=== PATIENT | male | born 1955 | race Caucasian/White ===

== ENCOUNTER 2020-03-18 20:53 | Emergency (ER) | payer MEDICARE ==
--- NOTE | 2020-03-18 21:13 | ED ---
General Adult HPI - General Chief complaint: Recheck/Abnormal Lab/Rx Stated complaint: peg tube issue Time Seen by Provider: 03/18/20 20:56 Source: patient, EMS, RN notes reviewed Mode of arrival: EMS Limitations: language barrier - History of Present Illness Initial comments: Patient is a pleasant 64-year-old male presenting to the emergency Department with complaints of PEG tube falling out. Patient states he was receiving his feedings today when the PEG tube suddenly just fell out. Patient denies any pain. PEG tube has been present for the past 3 months and has been using without difficulty. Patient does have PEG tube secondary to cancer to provide him with extra nutrition. - Related Data Allergies Allergy/AdvReac Type Severity Reaction Status Date / Time chlorhexidine Allergy Rash/Hives Verified 03/18/20 21:01 Penicillins Allergy Rash/Hives Verified 03/18/20 21:01 simvastatin Allergy Unknown Verified 03/18/20 21:01 Review of Systems ROS Statement: Those systems with pertinent positive or pertinent negative responses have been documented in the HPI. ROS Other: All systems not noted in ROS Statement are negative. Constitutional: Denies: fever Eyes: Denies: eye pain ENT: Denies: ear pain Respiratory: Denies: dyspnea Cardiovascular: Denies: chest pain Endocrine: Denies: fatigue Gastrointestinal: Denies: abdominal pain, vomiting Genitourinary: Denies: dysuria Past Medical History Additional Past Medical History / Comment(s): esophageal cancer, radiation/chemo History of Any Multi-Drug Resistant Organisms: None Reported Past Psychological History: Depression Smoking Status: Former smoker Past Alcohol Use History: None Reported Past Drug Use History: None Reported General Exam Limitations: language barrier General appearance: alert, in no apparent distress Head exam: Present: normocephalic Eye exam: Present: normal appearance Neck exam: Present: normal inspection Respiratory exam: Present: normal lung sounds bilaterally Cardiovascular Exam: Present: regular rate, normal rhythm GI/Abdominal exam: Present: soft, normal bowel sounds. Absent: distended, tenderness Extremities exam: Present: normal inspection Neurological exam: Present: alert Psychiatric exam: Present: normal affect, normal mood Skin exam: Present: normal color Course Vital Signs 03/18/20 20:55 Pulse Rate 88 Respiratory 24 Rate Blood Pressure 118/69 O2 Sat by Pulse 99 Oximetry Procedures - Feeding Tube Replacement Reason for Replacement: fell out Initial Tube Inserted: greater than 2 weeks (3 months) Type of Tube: gastrostomy Use of Tube: feedings only Insertion Site Prior to Procedure: clean [place] Tube Size (F): 14 Verification of Placement: auscultation Tube Secured by: G-tube attachment device Patient Tolerated Procedure: well, no complications Additional Comments: Able to flush PEG tube without any complications or discomfort as well as withdrawal Disposition Clinical Impression: PEG tube malfunction Disposition: HOME SELF-CARE Condition: Stable Instructions (If sedation given, give patient instructions): Tube Feeding (DC), How to Use and Care for Your PEG Tube (ED) Additional Instructions: Please follow-up with primary care physician in the next day or 2 for recheck. Return for abdominal pain, to falling out, worsening symptoms or other concerns. Is patient prescribed a controlled substance at d/c from ED?: No Referrals: Benny Rosas MD [REFERRING] - 1-2 days Time of Disposition: 22:53
[2020-03-18 23:02] VITALS: BP 105/60; PULSE 84; RESP 18; TEMP 98.4
== END 2020-03-18 23:40 | disposition home or self-care (01) ==
LOC: EC 20:53
DX: K94.23 Gastrostomy malfunction (principal); Z88.0 Allergy status to penicillin; Z88.3 Allergy status to other anti-infective agents; Z88.8 Allergy status to other drugs, medicaments and biological substances; Z85.01 Personal history of malignant neoplasm of esophagus; Z87.891 Personal history of nicotine dependence
CPT/HCPCS: 43762; 99283